=== PATIENT | male | born 1975 | race African-American/Black ===

== ENCOUNTER 2019-03-25 19:36 | Emergency (ER) | payer OTHER ==
[~2019-03-25] VITALS: Ht 185.4 cm; Wt 104.3 kg
[2019-03-25 19:55] VITALS: BP 165/102
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
[2019-03-25] MEDS ORDERED: HYDR-3164 PO (21:29)
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
== END 2019-03-25 21:55 | disposition home or self-care (01) ==
LOC: ER 19:36
DX: S22.31XA Fracture of one rib, right side, initial encounter for closed fracture (principal); M54.5 Low back pain; M54.6 Pain in thoracic spine; R51 Headache; E78.5 Hyperlipidemia, unspecified; E11.9 Type 2 diabetes mellitus without complications; I10 Essential (primary) hypertension; V49.49XA Driver injured in collision with other motor vehicles in traffic accident, initial encounter; Y93.89 Activity, other specified; Y92.488 Other paved roadways as the place of occurrence of the external cause; Y99.8 Other external cause status
CPT/HCPCS: 70450; 72125; 72128; 72131; 99284-25

== ENCOUNTER 2020-03-31 18:48 | Emergency (ER) | payer OTHER ==
[~2020-03-31] VITALS: Ht 185.4 cm; Wt 106.0 kg
[~2020-03-31 18:48] MED LIST: HYDR-3164 PO
[2020-03-31] MEDS ORDERED: ORPH100T PO (19:35)
[2020-03-31] MEDS ORDERED: IBUP-1007 PO (19:35)
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
[2020-03-31 19:41] VITALS: BP 124/86
== END 2020-03-31 20:06 | disposition home or self-care (01) ==
LOC: ER 18:48
DX: S39.012A Strain of muscle, fascia and tendon of lower back, initial encounter (principal); E11.9 Type 2 diabetes mellitus without complications; I10 Essential (primary) hypertension; Z87.891 Personal history of nicotine dependence; Z98.890 Other specified postprocedural states; V49.88XA Car occupant (driver) (passenger) injured in other specified transport accidents, initial encounter; Y93.89 Activity, other specified; Y92.89 Other specified places as the place of occurrence of the external cause; Y99.8 Other external cause status
CPT/HCPCS: 99283

== ENCOUNTER → 2020-12-29 | Outpatient (CLI) | payer OTHER ==
[~2020-12-29] MED LIST changes: +IBUP-1007 PO; +ORPH100T PO
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
== END ==
LOC: KCIC 15:11
PROVIDERS: ATTEND Family Medicine
DX: S62.397A Other fracture of fifth metacarpal bone, left hand, initial encounter for closed fracture (principal); V89.2XXA Person injured in unspecified motor-vehicle accident, traffic, initial encounter; Y93.89 Activity, other specified; Y92.89 Other specified places as the place of occurrence of the external cause; Y99.8 Other external cause status
CPT/HCPCS: 73130